=== PATIENT | male | born 1960 ===

== ENCOUNTER → 2016-10-03 | Outpatient (CLI) | payer OTHER ==
[~2016-10-03] MED LIST: BUPIVACAINE MPF 0.25% 10 ML VIAL. ONE; CYCL10TA2 PO; DIVA500T9 PO; IBUP100T7 PO; MELO-150 PO; NAPR220C4 PO; SERT25TA PO; TRAZ50TA15 PO; VENTOLIN HFA18 GM INH; methylPREDNISolone ACETATE 40 MG/ML VIAL. ONE; methylPREDNISolone ACETATE 80 MG/ML VIAL. ONE
--- NOTE | 2016-10-04 02:07 | PAIN ---
DATE OF SERVICE: 10/03/2016 DIAGNOSES: Lumbar spondylosis with lumbar degenerative disk disease and lumbar radiculopathy. HISTORY OF PRESENT ILLNESS: The patient is a 56-year-old male who returns for followup status post bilateral lumbar facet joint injections in 05/2016. The patient reports he did very well with these about 80% improvement for about 5-8 weeks. The patient reports pain has returned over the past few weeks, it is increasing in his low back essentially right equal to left, some sharp pain in the gluteus on the left side, but also some pain in the right side and occasionally pain in the right leg, but only very occasionally. The patient reports he had no pain in the right leg after his last injections, had some tightness sensation in the shoulders as well, but this seems to be unrelated. The patient reports his pain as a 3 on a scale of 10 ____ as high as 8 with increased activity and walking, standing or sitting for prolong periods. The patient reports no new motor or sensory deficits, no new bowel or bladder incontinence or other complaints. PHYSICAL EXAMINATION: VITAL SIGNS: The patient's blood pressure 145/91, pulse 65, respirations 18, temperature 98.2 degrees Fahrenheit, height is 5 feet 10 inches, and weight is 202 pounds. GENERAL: The patient is awake, alert, oriented, appropriate, very pleasant demeanor. HEENT: Head shows normocephalic and atraumatic. Extraocular movements are intact and symmetrical. Oral cavity shows mucous membranes moist and pink. Dentition is intact. NECK: Shows anterior throat supple without palpable lymphadenopathy noted. Swallow reflex is symmetrical. CHEST: Shows normal on inspection. Breath sounds clear to auscultation bilaterally. HEART: Shows S1 and S2 clear. ABDOMEN: Soft, nontender, and nondistended. No palpable organomegaly is noted. BACK: Shows spine grossly midline. Normal appearing thoracic kyphosis and lumbar lordotic curvatures. Lumbar paraspinous musculature shows symmetrical with inspection. No atrophy or hypertrophy. With palpation, the patient shows moderate tenderness with the middle and lower distribution of paraspinous muscles, but only diffusely without radiation. No tenderness over the sacrum or sacroiliac regions over the spinous processes. The patient shows good rotational motion both laterally as well as extension and flexion with some minor pain with extension in the low back bilaterally, but not with forward flexion, which he performed fully at 45 degrees. EXTREMITIES: Lower extremities showed deep tendon reflexes 2+ in the patellar, 1+ tendo-calcaneus tendons are equal. Motor exam is strong with 5/5 dorsiflexion, extension, quadriceps and hamstring flexion and symmetrical. Options were discussed with the patient and the patient's old chart was reviewed and his current medication regimen and updated. Current review of systems updated today as well. We will proceed today with bilateral lumbar L4-L5 and L5-S1 facet joint injections. Risks were again discussed including, but not limited to bleeding, infection, possibility of epidural hematoma, subsequent neurologic compromise, dural punctures, headaches, spinal cord and/or nerve damage, side effects of steroid medication and poor results regarding pain control. The patient understands and wishes to proceed. The patient will return to clinic in approximately 2 weeks for followup, was counseled on return appointment, activity level and side effects to be aware of. DIAGNOSES: Lumbar spondylosis with lumbar degenerative disk disease. PROCEDURES: Bilateral L4-L5 and L5-S1 facet joint injections with C-arm fluoroscopic guidance under local anesthetic using a sterile prep and drape. MEDICATION INJECTED: A total of 120 mg of Depo-Medrol plus total of 4 mL of 0.25% bupivacaine and a total of 4 mL of Isovue for contrast. CONDITION AT DISCHARGE: Stable. The patient tolerated procedure well, had no complications. MELANIE LI MD DR: ALYSSA/basim JOB#: [id number] / [id number]
== END | disposition home or self-care (01) ==
LOC: PNCL 07:39
PROVIDERS: ATTEND Anesthesiology
DX: M51.36 Other intervertebral disc degeneration, lumbar region (principal); M47.896 Other spondylosis, lumbar region
CPT/HCPCS: 64493; 64494; J1030; J1040; J3490

== ENCOUNTER → 2016-11-23 | Outpatient (CLI) | payer OTHER ==
[~2016-11-23] MED LIST changes: +IOHEXOL 180 MG/ML 10 ML VIAL. ONE; -MELO-150 PO; +MELO15TA23 PO
--- NOTE | 2016-11-23 23:49 | PAIN ---
DATE OF SERVICE: 11/23/2016 PROGRESS NOTE FOR PAIN CLINIC DIAGNOSES: Lumbar spondylosis with lumbar degenerative disk disease. HISTORY OF PRESENT ILLNESS: The patient is a 56-year-old male who returns for followup status post lumbar facet joint injections on 10/03/2016. The patient did very well with near 100% improvement for about 10 days. The patient reports the pain is still improved, but has been wearing off, increasing pain in the low back, slightly more on the right than the left, but present bilaterally, it is a radiating severe sharp pain mostly in the posterior gluteus and thigh on the right side, but only occasionally. The patient reports it awakens him from sleep at night occasionally, not every night, but he does reposition himself at least ____ on his back of his right side. The patient reports otherwise no new motor or sensory deficits, no new bowel or bladder incontinence. The patient rates his pain as 8 on a scale of 10 at its worst, it is a 5 on a scale 10 currently. Reports no new changes or deficits. PHYSICAL EXAMINATION: VITAL SIGNS: The patient's blood pressure is 115/80, pulse 72, respirations 20, temperature 97.8 degrees Fahrenheit, height is 5 feet 10 inches, weight 206 pounds. GENERAL: The patient is awake, alert, oriented, appropriate, very pleasant demeanor. HEENT: Shows normocephalic, atraumatic. Extraocular movements are intact and symmetrical. Oral cavity, mucous membranes are moist and pink. Dentition intact. NECK: Shows anterior throat supple. CHEST: Shows normal on inspection. Breath sounds are clear to auscultation bilaterally. HEART: Shows S1 and S2 clear. No murmurs auscultated. ABDOMEN: Soft, nontender, nondistended. No palpable organomegaly. No rebound or guarding demonstrated. BACK: Shows spine grossly in the midline. Lumbar paraspinous musculature shows symmetrical on inspection. With palpation shows some mild tenderness with palpation in the lower lumbar distribution bilaterally, but appears roughly symmetrical without evidence of atrophy or hypertrophy. No tenderness over the sacrum or sacroiliac regions. The patient shows good rotation and motion of lumbar spine, both laterally as well as extension and flexion with some tenderness noted and pain reported with extension only, but not with forward flexion, it is actually relieved. Right and left lateral rotation there is only very mild tenderness at 10 degrees right and left without radiation once again on the lower extremities. The exam shows deep tendon reflexes 2+ in the patellar, 1+ tendo-calcaneus tendons are equal. Motor exam is strong with dorsiflexion, extension, quadriceps and hamstring flexion rated 5/5 and equal bilaterally. Options were discussed with the patient and the patient's old chart was reviewed as her current medication regimen and updated. Current review of systems updated today as well. We will proceed with the additional L4-L5 and L5-S1 facet joint injections with fluoroscopic guidance bilaterally. Risks were again discussed including, but not limited to bleeding, infection, possibility of epidural hematoma, subsequent neurologic compromise, dural puncture, headaches, spinal cord and/or nerve damage, side effects of steroid medication and poor results regarding pain control. The patient understands and wishes to proceed. The patient will return to clinic in approximately 2 weeks for followup. He was counseled on return appointment, activity level and side effects to be aware of. We also discussed possible radiofrequency in the future, he would like to consider this, but he is not quite determined whether he would like to do this or not at this time. DIAGNOSES: Lumbar spondylosis with lumbar degenerative disk disease. PROCEDURES: Bilateral L4-L5 and L5-S1 facet joint injections with C-arm fluoroscopic guidance under sterile prep and drape using local anesthetic. MEDICATIONS INJECTED: A total of 120 mg of Depo-Medrol plus a total of 4 mL of 0.25% bupivacaine and total of 2 cc of Isovue for contrast. CONDITION AT DISCHARGE: Stable. The patient tolerated the procedure well, had no complications. MELANIE LI MD DR: ALYSSA/basim JOB#: [id number] / [id number]
== END | disposition home or self-care (01) ==
LOC: PNCL 08:09
PROVIDERS: ATTEND Anesthesiology
DX: M51.36 Other intervertebral disc degeneration, lumbar region (principal); M47.816 Spondylosis without myelopathy or radiculopathy, lumbar region
CPT/HCPCS: 64493; 64494; J1030; J1040; J3490